=== PATIENT | female | born 1960 | race Caucasian/White ===

== ENCOUNTER → 2017-04-22 | Outpatient (CLI) | payer BC ==
[2014-05-01 07:59] VITALS: BP 140/88
[~2017-04-22] MED LIST: ALBU1.25 NEB; ALPR0.25 PO; FLUT1DIS IH; GUAI118L20 PO; LEVO500T59 PO; NAPR500T PO; Nicotine TD; PRED20TA PO
--- NOTE | 2017-04-22 11:08 | KCIC ---
EXAM: Dual energy x-ray absorptiometry (DEXA). HISTORY: Postmenopausal female presents for osteoporosis screening. COMPARISON: None. TECHNIQUE: Dual energy x-ray absorptiometry of the lumbar spine and left hip was performed. Calculation of bone mineral density based on standard deviations above or below the expected young adult normal value (T-score) was completed. FINDINGS: The average bone mineral density in the 1st through 4th lumbar vertebrae is 1.102 g/cmxcm, corresponding with a T-score of 0.5. The average total bone mineral density in the left hip is 0.979 g/cmxcm, corresponding with a T-score of 0.3. IMPRESSION: Normal bone mineral density. Note: Definitions established by the [employer] Organization: 1. Normal: T-score is -1.0 or above. 2. Osteopenia: T-score is between -1.0 and -2.5 . 3. Osteoporosis: T-score is -2.5 or below. Electronically signed by: Trice Masters MD (04/22/2017 11:05 AM) [email or web address]
== END | disposition home or self-care (01) ==
LOC: KCIC DEXA 10:08
PROVIDERS: ATTEND Family Medicine
DX: Z13.820 Encounter for screening for osteoporosis (principal); M85.80 Other specified disorders of bone density and structure, unspecified site; E11.9 Type 2 diabetes mellitus without complications; Z78.0 Asymptomatic menopausal state
CPT/HCPCS: 77080